=== PATIENT | male | born 1955 | race African-American/Black ===

== ENCOUNTER 2024-08-14 08:09 | Inpatient (IN) | payer SELFPAY ==
[~2024-08-14] VITALS: Ht 182.9 cm; Wt 73.0 kg
[2024-08-14] VITALS (43 sets, daily range): BP systolic 93–171; BP diastolic 58–87; PULSE 103–157; RESP 9–46; TEMP 37.1–39.3; O2SAT 95–100
[2024-08-14] MEDS ORDERED: NICARDIPINE 40MG/200ML PREMIX 200 ML IV PRN ×3 (09:00→12:15)
[2024-08-14 09:05] LABS: CHLORIDE 108 mEq/L (98-107); POTASSIUM 4.1 mEq/L (3.5-5.1)
[2024-08-14 09:06] LABS: CARBON DIOXIDE 22 mEq/L (21-32); SODIUM 138 mEq/L (136-145)
[2024-08-14 09:07] LABS: CALCIUM 10.8 mg/dL (8.7-10.4)
[2024-08-14 09:11] LABS: CREATININE 1.3 mg/dL (0.6-1.3)
[2024-08-14 09:12] LABS: ETHANOL BLOOD < 10 mg/dL (<10); GLUCOSE 329 mg/dL (70-105); UREA NITROGEN BLOOD 25 mg/dL (9-23)
[2024-08-14 09:16] LABS: HEMATOCRIT. 38.6 % (42.0-52.0); MEAN CORPUSCULAR HEMOGLOBIN 26.9 pg (28.0-32.0); MEAN CORPUSCULAR HGB CONC 33.8 g/dL (31.0-37.0); MEAN CORPUSCULAR VOLUME 79.6 fL (80.0-94.0); MEAN PLATELET VOLUME 9.9 fl (7.4-10.4); PLATELET 102 x1000/uL (130-400); RED BLOOD CELL COUNT 4.85 mill/uL (4.7-6.1); RED CELL DISTRIBUTION WIDTH 16.2 % (11.6-14.6); WHITE BLOOD COUNT 12.8 x1000/uL (4.5-11.0)
[2024-08-14 09:17] LABS: DIFFERENTIAL COMMENT 1
[2024-08-14] MEDS: NICARDIPINE 40MG/200ML PREMIX 200 ML IV PRN (09:32)
[2024-08-14] MEDS: LEVETIRACETAM 500MG PREMIX 100 ML IV SCH ×2 (09:33→20:31)
[2024-08-14] MEDS: MANNITOL 20% (20GM/100ML) BAG 500ML PREMIX IV SCH (09:33)
[2024-08-14 10:33] LABS: INR 1.1; PROTHROMBIN TIME 11.9 sec (9.6-11.0)
[2024-08-14 10:49] LABS: ANISOCYTOSIS 1+; MICROCYTOSIS 1+; PLATELET ESTIMATE DECREASED
[2024-08-14] MEDS ORDERED: ACETAMINOPHEN 650MG/20.3ML UDC GT PRN ×2 (12:00)
[2024-08-14] MEDS ORDERED: CLONIDINE 0.1MG TABLET PO PRN (12:00)
[2024-08-14] MEDS ORDERED: SODIUM CHLORIDE 0.9% 1,000 ML IV SCH (12:00)
[2024-08-14] MEDS ORDERED: ONDANSETRON HCL 4MG/2ML INJ IV PRN (12:00)
[2024-08-14] MEDS ORDERED: MORPHINE SULFATE 2 MG/ML INJ (NOT FOR IM USE) IV PRN (12:00)
[2024-08-14] MEDS ORDERED: DOCUSATE SODIUM 100MG CAPSULE PO PRN (12:00)
[2024-08-14] MEDS ORDERED: IPRATROPIUM/ALBUTEROL 0.5-3(2.5)MG/3ML NEB HHN PRN (12:00)
[2024-08-14] MEDS ORDERED: DEXTROSE 50% WATER 50ML SYRINGE IV PRN (12:00)
[2024-08-14] MEDS ORDERED: MAGNESIUM/ALUMINUM HYDROXIDE/SIMETHICONE 30ML UDC PO PRN (12:00)
[2024-08-14] MEDS ORDERED: GUAIFENESIN 200MG/10ML SUGAR FREE UDC PO PRN (12:00)
[2024-08-14] MEDS ORDERED: IPRATROPIUM/ALBUTEROL 0.5-3(2.5)MG/3ML NEB HHN SCH (12:00)
[2024-08-14] MEDS ORDERED: HYDROCODONE/ACETAMINOPHEN 5/325MG TABLET PO PRN (12:00)
[2024-08-14] MEDS ORDERED: DEXT 5%/LACTATED RINGERS 1,000 ML IV SCH (12:15)
[2024-08-14] MEDS: ASPIRIN 325MG EC TABLET PO SCH (12:30)
[2024-08-14] MEDS ORDERED: NALOXONE HCL 0.4MG/ML VIAL IV PRN (12:45)
[2024-08-14] MEDS: BLOOD SUGAR DIAGNOSTIC STRIP TEST SCH (13:00)
[2024-08-14 13:23] LABS: BG BASE EXCESS -7.4 mmol/L (-2.0-3.0); BG CARBOXYHEMOGLOBIN 0.7 % (0.5-1.5); BG FRACTION INSPIRED OXYGEN 28; BG HCO3 ACT 13.8 mmol/L (21.0-28.0); BG METHEMOGLOBIN 0.1 % (0.5-1.5); BG OXYHEMOGLOBIN 95.2 % (94.0-98.0); BG PH 7.456 (7.350-7.450); BG PO2 76.1 mmHg (83.0-108.0); BG SAMPLE SITE RIGHT RADIAL; BG TOTAL HEMOGLOBIN 15.1 g/dL (13.5-17.5); BG VENT MODE NASAL CANNULA
[2024-08-14] MEDS: IPRATROPIUM BROMIDE (0.02%) 0.5MG/2.5ML NEB HHN SCH (13:30)
[2024-08-14 13:49] LABS: CLARITY URINE CLEAR (CLEAR); COLOR URINE YELLOW (YELLOW); GLUCOSE URINE 3+ (NEGATIVE); KETONES URINE 1+ (NEGATIVE); LEUKOCYTE ESTERASE URINE NEGATIVE (NEGATIVE); NITRITE URINE NEGATIVE (NEGATIVE); OCCULT BLOOD URINE 2+ (NEGATIVE); PH URINE 5.5 (4.5-8.0); PROTEIN URINE 2+ (NEGATIVE)
[2024-08-14] MEDS: HYDRALAZINE HCL 10MG TABLET PO SCH (14:00)
[2024-08-14 14:01] LABS: BACTERIA URINE 1+; SQUAMOUS EPITHELIAL CELL URINE 1+ /lpf (RARE/1+); YEAST URINE NONE SEEN
[2024-08-14] MEDS: PANTOPRAZOLE SODIUM 40 MG/VIAL IV SCH (14:01)
[2024-08-14] MEDS: INSULIN GLARGINE 100 UNITS/ML SUBCUT SCH (14:02)
[2024-08-14] MEDS: INSULIN LISPRO 100 UNITS/ML SUBCUT SCH (14:16)
[2024-08-14 15:12] LABS: *AMPHETAMINES SCREEN URINE NEGATIVE (NEGATIVE); *BARBITURATES SCREEN URINE NEGATIVE (NEGATIVE); *BENZODIAZEPINES SCREEN URINE NEGATIVE (NEGATIVE); *COCAINE SCREEN URINE NEGATIVE (NEGATIVE); METHADONE URINE SCREEN NEGATIVE (NEGATIVE); OPIATES URINE SCREEN NEGATIVE (NEGATIVE); PHENCYCLIDINE URINE SCREEN NEGATIVE (NEGATIVE)
[2024-08-14 15:13] LABS: CANNABINOID URINE SCREEN NEGATIVE (NEGATIVE); ECSTASY MDMA SCREEN URINE NEGATIVE (NEGATIVE)
[2024-08-14 15:16] LABS: IRON 11 ug/dL (65-175)
[2024-08-14 15:19] LABS: TOTAL IRON BINDING CAPACITY 207 ug/dl (250-425)
[2024-08-14 15:22] LABS: FERRITIN 704 ng/mL (22-322); VITAMIN B12 SERUM 302 pg/mL (211-911)
[2024-08-14] MEDS: METOPROLOL TARTRATE 5MG/5ML VIAL IV SCH (16:04)
[2024-08-14] MEDS: ACETAMINOPHEN 1000MG/100ML 100 ML IV NR ×2 (16:40→23:28)
[2024-08-14 20:46] LABS: CREATINE KINASE 139 IU/L (46-171)
[2024-08-14 20:47] LABS: CREATINE KINASE MB FRACTION 13.5 ng/mL (0.5-3.6)
[2024-08-14] MEDS: ATORVASTATIN CALCIUM 40MG TABLET PO SCH (20:54)
[2024-08-14 21:05] LABS: TROPONIN I HIGH SENSITIVITY 2924 ng/L (3.0-53)
[2024-08-14 22:35] LABS: BG BASE EXCESS -3.1 mmol/L (-2.0-3.0); BG CARBOXYHEMOGLOBIN 1.1 % (0.5-1.5); BG DEOXYHEMOGLOBIN 5.9 % (0.0-5.0); BG FRACTION INSPIRED OXYGEN 28; BG HCO3 ACT 17.7 mmol/L (21.0-28.0); BG METHEMOGLOBIN 0.2 % (0.5-1.5); BG OXYHEMOGLOBIN 92.8 % (94.0-98.0); BG PCO2 23.1 mmHg (35.0-48.0); BG PH 7.502 (7.350-7.450); BG PO2 63.7 mmHg (83.0-108.0); BG SAMPLE SITE RIGHT RADIAL; BG TOTAL HEMOGLOBIN 16.1 g/dL (13.5-17.5); BG VENT MODE NASAL CANNULA
[2024-08-14] MEDS ORDERED: FENTANYL 2500MCG/250ML PMX 250 ML IV SCH (22:45)
[2024-08-14] MEDS: PROPOFOL 10MG/ML 100ML 100 ML IV PRN (23:05)
[2024-08-14] MEDS: LABETALOL 5MG/ML 4ML INJ IV NR (23:19)
[2024-08-14] MEDS: FENTANYL CITRATE/PF 50MCG/ML 2ML VIAL IV NR (23:28)
[2024-08-14] MEDS: FENTANYL CITRATE 2,500 MCG in SODIUM CHLORIDE 0.9% 200 ML IV PRN (23:29)
[2024-08-14] MEDS ORDERED: ACETAMINOPHEN 1000MG/100ML 100 ML IV PRN (23:30)
[2024-08-14] MEDS ORDERED: IOHEXOL-350 100 ML BOTTLE ONE (23:34)
[2024-08-14 23:54] LABS: CARBON DIOXIDE 21 mEq/L (21-32); CHLORIDE 113 mEq/L (98-107); POTASSIUM 3.5 mEq/L (3.5-5.1); SODIUM 144 mEq/L (136-145)
[2024-08-14 23:55] LABS: CALCIUM 12.2 mg/dL (8.7-10.4)
[2024-08-14 23:59] LABS: CREATINE KINASE MB FRACTION 36.7 ng/mL (0.5-3.6); GLUCOSE 329 mg/dL (70-105)
[2024-08-15] VITALS (94 sets, daily range): BP systolic 59–149; BP diastolic 24–104; PULSE 60–177; RESP 16–49; TEMP 36.5–37.7; O2SAT 97–100
[2024-08-15] LABS: UREA NITROGEN BLOOD 43 mg/dL (9-23)
[2024-08-15] MEDS: IPRATROPIUM/ALBUTEROL 0.5-3(2.5)MG/3ML NEB HHN SCH
[2024-08-15 00:01] LABS: LACTATE DEHYDROGENASE 512 IU/L (120-246); LACTIC ACID 3.6 mmol/L (0.4-2.0)
[2024-08-15 00:02] LABS: ALANINE AMINOTRANSFERASE 45 IU/L (10-49); ASPARTATE AMINOTRANSFERASE 73 IU/L (<34); BILIRUBIN TOTAL 1.6 mg/dL (0.1-1.0); PHOSPHORUS 2.1 mg/dL (2.5-4.9)
[2024-08-15 00:17] LABS: HEMATOCRIT 43.7 % (42.0-52.0); HEMOGLOBIN 14.6 g/dL (14.0-18.0); MEAN CORPUSCULAR HEMOGLOBIN 26.6 pg (28.0-32.0); MEAN CORPUSCULAR HGB CONC 33.3 g/dL (31.0-37.0); MEAN CORPUSCULAR VOLUME 79.8 fL (80.0-94.0); RED BLOOD CELL COUNT 5.48 mill/uL (4.7-6.1); RED CELL DISTRIBUTION WIDTH 16.2 % (11.6-14.6); WHITE BLOOD COUNT 13.8 x1000/uL (4.5-11.0)
[2024-08-15 00:23] LABS: PLATELET 48 x1000/uL (130-400)
[2024-08-15 00:53] LABS: BG CARBOXYHEMOGLOBIN 0.7 % (0.5-1.5); BG FRACTION INSPIRED OXYGEN 100; BG METHEMOGLOBIN 0.3 % (0.5-1.5); BG PCO2 36.3 mmHg (35.0-48.0); BG PH 7.337 (7.350-7.450); BG PO2 144.9 mmHg (83.0-108.0); BG SAMPLE SITE RIGHT RADIAL; BG TOTAL HEMOGLOBIN 15.7 g/dL (13.5-17.5); BG VENT MODE VENT - AC
[2024-08-15 00:56] LABS: TROPONIN I HIGH SENSITIVITY 10698 ng/L (3.0-53)
[2024-08-15 01:02] LABS: ALBUMIN 3.7 g/dL (3.2-4.8); PROTEIN TOTAL 6.5 g/dL (6.0-8.3)
[2024-08-15] MEDS: AZITHROMYCIN 500MG in D5W 250ML IV SCH (01:27)
[2024-08-15] MEDS: LACTATED RINGERS 1,000 ML IV ONE (01:27)
[2024-08-15] MEDS: CEFTRIAXONE 1GM/50ML 50 ML IV SCH (01:27)
[2024-08-15 05:49] LABS: HEMATOCRIT. 43.9 % (42.0-52.0); HEMOGLOBIN. 14.6 g/dL (14.0-18.0); MEAN CORPUSCULAR HEMOGLOBIN 26.8 pg (28.0-32.0); MEAN CORPUSCULAR HGB CONC 33.3 g/dL (31.0-37.0); MEAN CORPUSCULAR VOLUME 80.6 fL (80.0-94.0); RED BLOOD CELL COUNT 5.45 mill/uL (4.7-6.1); RED CELL DISTRIBUTION WIDTH 16.9 % (11.6-14.6); WHITE BLOOD COUNT 14.8 x1000/uL (4.5-11.0)
[2024-08-15 05:51] LABS: CHLORIDE 111 mEq/L (98-107); POTASSIUM 4.5 mEq/L (3.5-5.1); SODIUM 142 mEq/L (136-145)
[2024-08-15 05:52] LABS: CALCIUM 11.7 mg/dL (8.7-10.4); CARBON DIOXIDE 19 mEq/L (21-32)
[2024-08-15 05:57] LABS: GLUCOSE 361 mg/dL (70-105); TRIGLYCERIDE 297 mg/dL (0-150); UREA NITROGEN BLOOD 49 mg/dL (9-23)
[2024-08-15 05:58] LABS: LDL CHOLESTEROL 29 mg/dL (5-100)
[2024-08-15 05:59] LABS: CHOLESTEROL 116 mg/dL (<200); HDL CHOLESTEROL < 20 mg/dL (>55); T4 FREE 1.26 ng/dL (0.89-1.76)
[2024-08-15 06:00] LABS: THYROID STIMULATING HORMONE 0.55 uIU/mL (0.55-4.78)
[2024-08-15 06:15] LABS: TROPONIN I HIGH SENSITIVITY 16099 ng/L (3.0-53)
[2024-08-15] MEDS: PHENYLEPHRINE 50MG/250ML PMX 250 ML IV PRN (06:21)
[2024-08-15] MEDS: INSULIN LISPRO 100 UNITS/ML SUBCUT SCH ×3 (06:21→15:30)
[2024-08-15 06:38] LABS: DIFFERENTIAL COMMENT 1
[2024-08-15 07:12] LABS: MEAN PLATELET VOLUME 15.4 fl (7.4-10.4); PLATELET 45 x1000/uL (130-400)
[2024-08-15 07:21] LABS: ANISOCYTOSIS 1+; MICROCYTOSIS 1+; PLATELET ESTIMATE MARKEDLY DECREASED
[2024-08-15] MEDS: VASOPRESSIN 20 UNIT in SODIUM CHLORIDE 0.9% 99 ML IV PRN (07:30)
[2024-08-15 08:47] LABS: BG BASE EXCESS -12.6 mmol/L (-2.0-3.0); BG CARBOXYHEMOGLOBIN 0.1 % (0.5-1.5); BG DEOXYHEMOGLOBIN 0.3 % (0.0-5.0); BG FRACTION INSPIRED OXYGEN 100; BG HCO3 ACT 12.3 mmol/L (21.0-28.0); BG METHEMOGLOBIN 0.1 % (0.5-1.5); BG OXYGEN SATURATION 99.7 % (94.0-98.0); BG OXYHEMOGLOBIN 99.5 % (94.0-98.0); BG PCO2 26.9 mmHg (35.0-48.0); BG PH 7.278 (7.350-7.450); BG PO2 466.6 mmHg (83.0-108.0); BG SAMPLE SITE RIGHT RADIAL; BG TOTAL HEMOGLOBIN 15.8 g/dL (13.5-17.5); BG VENT MODE VENT - AC
[2024-08-15] MEDS ORDERED: ASPIRIN 81MG EC TABLET PO SCH (09:00)
[2024-08-15] MEDS ORDERED: AZITHROMYCIN 500 MG in DEXT 5% WATER 250 ML IV SCH (09:00)
[2024-08-15] MEDS ORDERED: AZITHROMYCIN 500MG in D5W 250ML IV SCH (09:00)
[2024-08-15] MEDS: AMLODIPINE 5MG TABLET PO SCH (09:00)
[2024-08-15] MEDS ORDERED: CEFTRIAXONE 1GM/50ML 50 ML IV SCH (09:00)
[2024-08-15] MEDS ORDERED: NOREPINEPHRINE 8 MG in DEXT 5% WATER 242 ML IV PRN (09:30)
[2024-08-15] MEDS: NOREPINEPHRINE 8MG/250ML PMX 250ML IV PRN (10:10)
[2024-08-15 10:13] LABS: LACTIC ACID 10.3 mmol/L (0.4-2.0)
[2024-08-15] MEDS ORDERED: AMIODARONE HCL 900 MG in DEXT 5% WATER 482 ML IV SCH (10:30)
[2024-08-15] MEDS: AMIODARONE 150MG/100ML D5W 100 ML IV SCH (10:31)
[2024-08-15] MEDS: MEROPENEM 1G/100ML 100 ML IV SCH (10:33)
[2024-08-15] MEDS: BLOOD SUGAR DIAGNOSTIC STRIP TEST SCH ×2 (11:30→15:57)
[2024-08-15] MEDS: NOREPINEPHRINE 32 MG in DEXT 5% WATER 218 ML IV PRN (12:36)
[2024-08-15 13:40] LABS: TROPONIN I HIGH SENSITIVITY 35411 ng/L (3.0-53)
[2024-08-15] MEDS: SODIUM BICARBONATE 8.4% 50MEQ/50ML SYR IV NR (14:07)
[2024-08-15] MEDS: DEXTROSE 50% WATER 50ML SYRINGE IV PRN (15:56)
[2024-08-15 16:43] LABS: LACTIC ACID 16.8 mmol/L (0.4-2.0)
[2024-08-15 18:47] LABS: TROPONIN I HIGH SENSITIVITY 91578 ng/L (3.0-53)
[2024-08-15] MEDS: PHENYLEPHRINE 100 MG in DEXT 5% WATER 240 ML IV PRN (19:55)
[2024-08-15] MEDS ORDERED: EPINEPHRINE 0.1MG/ML (1:10,000) 10ML SYR ONE (21:00)
[2024-08-15] MEDS ORDERED: CALCIUM CHLORIDE 1GM/10ML SYR IV ONE (21:00)
[2024-08-15 21:04] LABS: INFLUENZA TYPE A Presumptive Negative (Pres. Neg.); INFLUENZA TYPE B Presumptive Negative (Pres. Neg.)
== END 2024-08-15 23:45 | DRG 720 ==
LOC: ER 08:09 → EDBEDREQ 08:29 → MICUSO 10:49 → EDBEDREQSVC 10:51 → EDBEDREQ 10:51 → EDBEDREQTM 10:51 → ENRESERV 10:56
PROVIDERS: ADMIT Hospitalist; ATTEND Hospitalist
PROC: 0BH17EZ Insertion of Endotracheal Airway into Trachea, Via Natural or Artificial Opening (ICD-10-PCS; principal; 2024-08-14)
PROC: 5A1935Z Respiratory Ventilation, Less than 24 Consecutive Hours (ICD-10-PCS; 2024-08-14)
PROC: 5A12012 Performance of Cardiac Output, Single, Manual (ICD-10-PCS; 2024-08-15)
DX: A41.1 Sepsis due to other specified staphylococcus (principal); I60.9 Nontraumatic subarachnoid hemorrhage, unspecified; J96.01 Acute respiratory failure with hypoxia; N17.0 Acute kidney failure with tubular necrosis; I46.9 Cardiac arrest, cause unspecified; D69.6 Thrombocytopenia, unspecified; G81.90 Hemiplegia, unspecified affecting unspecified side; J18.9 Pneumonia, unspecified organism; Z20.822 Contact with and (suspected) exposure to COVID-19; E11.22 Type 2 diabetes mellitus with diabetic chronic kidney disease; D50.9 Iron deficiency anemia, unspecified; I12.9 Hypertensive chronic kidney disease with stage 1 through stage 4 chronic kidney disease, or unspecified chronic kidney disease; I61.1 Nontraumatic intracerebral hemorrhage in hemisphere, cortical; R65.21 Severe sepsis with septic shock; N18.9 Chronic kidney disease, unspecified; G92.8 Other toxic encephalopathy; E78.1 Pure hyperglyceridemia; I21.A1 Myocardial infarction type 2; I49.01 Ventricular fibrillation; I49.1 Atrial premature depolarization; I48.91 Unspecified atrial fibrillation; Z79.82 Long term (current) use of aspirin; Z79.899 Other long term (current) drug therapy; Z79.4 Long term (current) use of insulin; Z91.148 Patient's other noncompliance with medication regimen for other reason
CPT/HCPCS: 36415; 36600; 70496; 70498; 71045; 80048; 80053; 80061; 80305; 80320; 81003; 82375; 82550; 82553; 82607; 82728; 82746; 82805; 82962; 83036; 83540; 83550; 83605; 83615; 83735; 83880; 83930; 84100; 84145; 84439; 84443; 84484; 85025; 85027; 87077; 87186; 87426; 87804; 92950; 93005; 94002; 94070; 94664; 99291; A4606; J0282; J0456; J0696; J1815; J1953; J2185; J2371; J2470; J2704; J3010; J3490; J7050; J7060; Q9967; G0480; J0131